=== PATIENT | male | born 2000 | race African-American/Black ===

== ENCOUNTER 2021-10-12 12:40 | Emergency (ER) | payer OTHER ==
[2021-10-12] MEDS ORDERED: levETIRAcetam in NS 100 ML ONE (12:50)
[2021-10-12 13:06] LABS: #Monocytes 0.5 10x3/uL (0.0-1.1); #Neutrophils 11.2 10x3/uL (1.5-8.4); %Basophils 0.2 % (0.0-2.0); %Eosinophils 0.1 % (0.0-6.0); %Lymphocytes 4.7 % (18.0-47.0); %Monocytes 4.3 % (0.0-10.0); %Neutrophils 90.4 % (40.0-75.0); Hemoglobin 15.1 g/dL (13.5-17.5); Mean Corpuscular HGB CONC 33.7 g/dL (32.0-36.0); Mean Corpuscular Hemoglobin 29.9 pg (27.0-33.0); Mean Corpuscular Volume 88.7 fl (81.2-95.1); Platelet Count 271 10x3/uL (150-450); RBC Distribution Width 12.4 % (11.5-14.5); Red Blood Cell (RBC) Count 5.05 10x6/uL (4.32-5.72); White Blood Cell (WBC) Count 12.4 10x3/uL (3.5-10.5)
[2021-10-12 13:20] LABS: ALT (SGPT) 17 U/L (8-55); AST (SGOT) 17 U/L (5-34); Albumin 4.6 g/dL (3.5-5.0); Alkaline Phosphatase 87 U/L (50-130); Anion Gap 16 mmol/L (10-20); BUN (Urea Nitrogen) 9 mg/dL (8.9-20.6); Bilirubin, Total 0.2 mg/dL (0.2-1.2); Calc. Creatinine Clearance 0 mL/min (70-130); Calcium 9.4 mg/dL (7.8-10.44); Carbon Dioxide 20 mmol/L (22-29); Chloride 106 mmol/L (98-107); Estimated GFR 121; Globulin 2.9 g/dL (2.4-3.5); Glucose 120 mg/dL (70-105); Potassium 4.2 mmol/L (3.5-5.1); Protein, Total 7.5 g/dL (6.0-8.3); Sodium 138 mmol/L (136-145)
[2021-10-12] MEDS ORDERED: Acetaminophen 500 MG TAB ONE (15:15)
== END 2021-10-12 15:45 | disposition home or self-care (01) ==
LOC: CSHERS 12:40
DX: G40.909 Epilepsy, unspecified, not intractable, without status epilepticus (principal); Z79.899 Other long term (current) drug therapy
CPT/HCPCS: 36415; 80053; 85025; 99284; J1953

== ENCOUNTER 2021-12-08 12:12 | Emergency (ER) | payer MEDICAID, SELFPAY ==
[2021-12-08] MEDS ORDERED: levETIRAcetam 500 MG/5 ML VIAL ONE (13:27)
== END 2021-12-08 15:33 | disposition home or self-care (01) ==
LOC: CSHERS 12:12
DX: G40.909 Epilepsy, unspecified, not intractable, without status epilepticus (principal)
CPT/HCPCS: 99283; J1953

== ENCOUNTER 2022-02-03 08:52 | Emergency (ER) | payer MEDICAID ==
[2022-02-03] MEDS ORDERED: levETIRAcetam 500 MG TAB PO SCH (10:30)
[2022-02-03] MEDS ORDERED: levETIRAcetam 500 MG TAB ONE (10:36)
== END 2022-02-03 10:33 | disposition home or self-care (01) ==
LOC: CSHERS 08:52
DX: Z76.0 Encounter for issue of repeat prescription (principal)
CPT/HCPCS: 99283

== ENCOUNTER 2022-03-16 12:30 | Emergency (ER) | payer MEDICAID ==
[2022-03-16] MEDS ORDERED: levETIRAcetam 500 MG TAB ONE (13:25)
== END 2022-03-16 13:58 | disposition home or self-care (01) ==
LOC: CSHERS 12:30
DX: G40.909 Epilepsy, unspecified, not intractable, without status epilepticus (principal)
CPT/HCPCS: 99283